=== PATIENT | male | born 1970 | race Hispanic/Latino ===

== ENCOUNTER 2017-08-02 08:43 | Emergency (ER) | payer OTHER ==
[2017-08-02 08:55] VITALS: BP 133/86; PULSE 71; RESP 19; TEMP 98; O2SAT 97
--- NOTE | 2017-08-02 09:37 | ED PDOC ---
Lower Extremity Pain/Injury Time Seen by Provider: 08/02/17 09:08 Chief Complaint (Nursing): Lower Extremity Problem/Injury Chief Complaint (Provider): Lower Extremity Problem/Injury History Per: Patient History/Exam Limitations: no limitations Onset/Duration Of Symptoms: Hrs (2 hours [employer]) Current Symptoms Are (Timing): Still Present Additional Complaint(s): 46 year old male presents to the ED with right 5th toe pain after he stubbed it this morning, 2 hours prior to arrival. Patient reports he hit into a solid wood bed frame in his home while walking past it. There was some blood at the time. Currently no active bleeding. He has pain in his right foot when he attempts to ambulate. 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 PMD: Dr. Thornton Past Medical History Reviewed: Historical Data, Nursing Documentation, Vital Signs Vital Signs: Last Vital Signs Temp 98.0 F 08/02/17 08:54 Pulse 71 08/02/17 08:54 Resp 19 08/02/17 08:54 BP 133/86 08/02/17 08:54 Pulse Ox 97 08/02/17 08:54 - Medical History PMH: HTN - Surgical History Surgical History: No Surg Hx - Family History Family History: States: Unknown Family Hx - Home Medications Home Medications: Ambulatory Orders Medication Instructions Recorded oxyCODONE/Acetaminophen [Percocet 1 ea PO TID PRN #6 tab 08/02/17 5/325 mg Tab] - Allergies Allergies/Adverse Reactions: Allergies Allergy/AdvReac Type Severity Reaction Status Date / Time No Known Allergies Allergy Verified 08/02/17 09:01 Review of Systems ROS Statement: Except As Marked, All Systems Reviewed And Found Negative Musculoskeletal: Positive for: Foot Pain (right 5th toe pain) Physical Exam - Reviewed Nursing Documentation Reviewed: Yes Vital Signs Reviewed: Yes - Physical Exam Appears: Positive for: Non-toxic, No Acute Distress Head Exam: Positive for: ATRAUMATIC, NORMAL INSPECTION, NORMOCEPHALIC Skin: Positive for: Normal Color, Warm, Dry Eye Exam: Positive for: EOMI, Normal appearance, PERRL Extremity: Positive for: Normal ROM (in foot and toes), Tenderness (tenderness in right 5th toe). Negative for: Deformity, Swelling (or ecchymosis) Neurologic/Psych: Positive for: Alert, Oriented. Negative for: Motor/Sensory Deficits - ECG O2 Sat by Pulse Oximetry: 97 (RA) Pulse Ox Interpretation: Normal Medical Decision Making Medical Decision Making: Time: 09:24 Impression: right 5th toe injury r/o fracture and dislocation (less likely) Initial Plan: --Right 5th toe x-ray --Percocet 1 tab PO X-ray reviewed and reveals a non displaced proximal fracture of proximal phalanx of right 5th toe. FINDINGS: BONES: Acute nondisplaced transverse fracture involving the 5th proximal phalangeal metaphysis. JOINTS: Normal. SOFT TISSUES: Regional soft tissue swelling. OTHER FINDINGS: None. IMPRESSION: Acute nondisplaced transverse fracture of the 5th proximal phalangeal metaphysis. Time: 09:52 --Spoke to podiatry resident, Dr. Basilio --Dr Basilio saw patient in the ED and applied surgical tape and orthopedic shoe. --Patient will follow up with Dr. Bell, orthopedist. Patient is stable and will be discharged home. Follow up with orthopedist. Return to the ED if symptoms persist or worsen. Scribe Attestation: Documented by Kateryna King, acting as a scribe for Rose Marie Gamino MD Provider Scribe Attestation: All medical record entries made by the Scribe were at my direction and personally dictated by me. I have reviewed the chart and agree that the record accurately reflects my personal performance of the history, physical exam, medical decision making, and the department course for this patient. I have also personally directed, reviewed, and agree with the discharge instructions and disposition. Disposition - Clinical Impression Clinical Impression: Toe fracture, right - Patient ED Disposition Is Patient to be Admitted: No Doctor Will See Patient In The: Office Counseled Patient/Family Regarding: Studies Performed, Diagnosis, Need For Followup - Disposition Referrals: William Bell III, MD [Staff Provider] - Disposition: Routine/Home Disposition Time: 11:16 Condition: GOOD Additional Instructions: Take medications as instructed. Follow up with Dr Bell within 2-3 days. Carry shoe until seen by doctor. Prescriptions: oxyCODONE/Acetaminophen [Percocet 5/325 mg Tab] 1 ea PO TID PRN #6 tab PRN Reason: Pain, Severe (8-10) Instructions: Toe Fracture (DC)
[2017-08-02] MEDS ORDERED: Oxycodone/Acetaminophen 5/325 mg Tab PO STA (09:50)
--- NOTE | 2017-08-02 10:42 | RAD ---
PROCEDURE: Right Foot Radiographs. HISTORY: right 5th toe injury COMPARISON: None. FINDINGS: BONES: Acute nondisplaced transverse fracture involving the 5th proximal phalangeal metaphysis. JOINTS: Normal. SOFT TISSUES: Regional soft tissue swelling. OTHER FINDINGS: None. IMPRESSION: Acute nondisplaced transverse fracture of the 5th proximal phalangeal metaphysis.
--- NOTE | 2017-08-02 11:06 | CP.PCM.PN ---
Objective - Vital Signs/Intake and Output Vital Signs (last 24 hours): Temp Pulse Resp BP Pulse Ox 98.0 F 71 19 133/86 97 08/02/17 08:54 08/02/17 08:54 08/02/17 08:54 08/02/17 08:54 08/02/17 10:59
--- NOTE | 2017-08-02 11:07 | CP.PCM.CON ---
History of Present Illness - History of Present Illness History of Present Illness: Orthopedic Consult Note- Dr. Bell 46 y.o male with PMH of HTN and acid reflux seen and evaluated in the ED for right foot pain. Patient reports at 7am this morning he stubbed his right 5th toe against a drawer. Patient reports being in tremendous pain during the incident. Reports the pain as a throbbing pain. Reports pain currently 2/10 and describes the pain as a throbbing pain localized to the right 5th digit. Patient denies nausea, fever, shortness of breath, chest pain, chills or fever. PMH: HTN, acid reflux PSH: right knee surgery (lateral release), sinus surgery SH: denies smoking or illicit drug use ALL: NKDA MEDS: see MAR list FH: mother- denies, father- denies Past Patient History - Past Social History Smoking Status: Never Smoked - CARDIAC Hx Hypertension: Yes - PSYCHIATRIC Hx Substance Use: No - SURGICAL HISTORY Hx Surgeries: Yes Other/Comment: sinus surgery Meds Home Medications: Home Medication List Medication Instructions Recorded Confirmed Type oxyCODONE/Acetaminophen [Percocet 1 ea PO TID PRN #6 tab 08/02/17 Rx 5/325 mg Tab] Allergies/Adverse Reactions: Allergies Allergy/AdvReac Type Severity Reaction Status Date / Time No Known Allergies Allergy Verified 08/02/17 09:01 Physical Exam - Constitutional Appears: Well, Non-toxic, No Acute Distress - Extremities Exam Extremities exam: Negative for: calf tenderness Additional comments: VASC: DP/PT pulses are palpable 2/4 B/L. Cap refill time: < 3 seconds to all digits. Skin temperature warm to cool from proximal to distal. mild nonpitting edema noted to the right 5th digit, digital hair present DERM: no ecchymosis, no open lesions, no bleeding noted, no hematoma to the nail plate, no inter digital maceration, nails are cut to hygenic length, no clinical suspicion of active infection NEURO: Epicritic and protective sensation intact ORTHO: pain with palpation to the right 5th proximal phalanx, MM is 5/5 in all four compartments in dorsiflexion, plantarflexion, inversion, and eversion - Neurological Exam Neurological exam: Alert, Oriented x3 - Psychiatric Exam Psychiatric exam: Normal Affect, Normal Mood Results - Vital Signs Recent Vital Signs: Last Vital Signs Temp 98.0 F 08/02/17 08:54 Pulse 71 08/02/17 08:54 Resp 19 08/02/17 08:54 BP 133/86 08/02/17 08:54 Pulse Ox 97 08/02/17 10:59 Assessment & Plan - Assessment and Plan (Free Text) Assessment: 46 y.o male with PMH of HTN and acid reflux with right acute nondisplaced transverse fracture of 5th proximal phalangeal metaphysis Plan: Patient examined and evaluated Discussed plan in detail with attending Dr. Bell X-rays impression: acute nondisplaced transverse fracture of 5th proximal phalangeal metaphysis Applied timothy tape to the 4th and 5th digit of right foot Patient to WBAT to the heels in a surgical shoe to the right foot Keep timothy tape on, clean, dry and intact. Do not get wet Instructed to rest, ice, and elevate right lower extremity Ibuprofen for pain and inflammation F/U with Dr. Bell in 1 week in office Call for an appointment Thank you for allowing us to take part in patient's care - Date & Time Date: 08/02/17 Time: 10:00
== END 2017-08-02 11:27 | disposition home or self-care (01) ==
LOC: H.ER 08:43
DX: S92.504A Nondisplaced unspecified fracture of right lesser toe(s), initial encounter for closed fracture (principal); W22.03XA Walked into furniture, initial encounter; I10 Essential (primary) hypertension